=== PATIENT | female | born 1935 | race Caucasian/White ===

== ENCOUNTER 2016-12-24 14:40 | Inpatient (IN) | payer OTHER, BC ==
[~2016-12-24] VITALS: Ht 157.5 cm; Wt 48.9 kg
--- NOTE | ~2016-12-24 | EKG ---
[address] [place] [address] ELECTROCARDIOGRAM REPORT Name: SALVATORE MORE Room #: 461-P ADM IN M.R.#: [id number] Admission: 12/24/16 Attend Phys: Cuco Gomez DO Discharge: Date of : 37 Report #: [id number] THIS REPORT FOR: //name// [facility] Test Date: 2016-12-26 Test Time: 23:19:48 Pat Name: SALVATORE MORE Department: Room: 461 P Gender: F Risk Assessment Consultant: karlos sun : 1935 Requested By: Sonali Vasquez Order Number: [id number] MD: Measurements Intervals [place] Rate: 155 P: 52 SD: 147 QRS: 51 QRSD: 72 T: -63 QT: 294 QTc: 473 Interpretive Statements Supraventricular tachycardia Borderline low voltage, extremity leads Repolarization abnormality, prob rate related No previous ECG available for comparison [email or web address] By: 2319 2319 Epiphany EpiphanyMD /EPI
--- NOTE | ~2016-12-24 | H ---
[facility] [address] HISTORY AND PHYSICAL Name: SALVATORE MORE Room #: 461-P ADM IN M.R.#: [id number] Admission: 12/24/16 Attend Phys: Sregey Granado MD Discharge: Date of : 36 Report #: [id number] THIS REPORT FOR: //name// CC: [facility] REASON FOR ADMISSION: Pulmonary embolism. 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 The details of the history are that the patient had a fall and broke her right femur at [facility]. In preparing her to the surgery, the her and she was found to have cold agglutinin disease. [facility] had her [facility] without any issues. The daughter is not aware of whether she was transfused or not. She was discharged on baby aspirin after Lovenox postop. Few days ago, she started to have swelling of the lower extremities with shortness of breath. She presented to [facility] for further evaluation and management and was found to have pulmonary embolism on the report of the CT. The other facility did not feel comfortable managing her pulmonary embolism as she was found to have a hemoglobin of 7 with a positive occult; however, she does have hemorrhoids. They felt that she will need transfusion, anticoagulation, gastrointestinal workup along with pulmonary workup with hematology evaluation and thus she was transferred. The patient currently feels okay other than minimal pain in the right lower extremity. PAST MEDICAL HISTORY: Really nothing other than this cold agglutinin disease. PAST SURGICAL HISTORY: 1. Cataract. 2. Right heel plate. 3. Right hip . 4. Right femur fracture with a plate placement. 5. Left wrist pin placement. SOCIAL HISTORY: She is a housewife. She quit smoking in 1999. No drug or alcohol abuse. FAMILY HISTORY: No known chronic medical illnesses including this cold agglutinin disease. MEDICATIONS: Listed medications from the other facility included gabapentin, Lovenox, tramadol. REVIEW OF SYSTEMS: GENERAL: No fever or chills. CARDIOVASCULAR: Occasional shortness of breath and lower extremity swelling. PULMONARY: Occasional shortness of breath. No cough or hemoptysis. [address] [address] HISTORY AND PHYSICAL Name: SALVATORE MORE Room #: 461-P [facility] IN M.R.#: [id number] Admission: 12/24/16 Attend Phys: Sergey Granado MD Discharge: Date of : 36 Report #: [id number] GASTROINTESTINAL: She has hemorrhoids with bleeding every once in a while from those hemorrhoids. GENITOURINARY: No frequency, no urgency. MUSCULOSKELETAL: Right hip pain. PHYSICAL EXAMINATION: GENERAL: She is alert, oriented, in no apparent distress. VITAL SIGNS: Temperature 37.1, pulse rate 97, blood pressure 136/83. HEAD AND NECK: No jugular venous distention. Some missing dentures. CHEST: Clear to auscultation bilaterally. CARDIOVASCULAR: Regular with no rub detected. ABDOMEN: Soft, nontender with no hepatosplenomegaly. LOWER EXTREMITIES: Extensive swelling in the right lower extremity with sutures in place and bruises around the right thigh. She also has an abrasion on the right tibial dave. LABORATORY VALUES: From the other facility reviewed. Her most recent hemoglobin is 7.1, dropping from 9.1 yesterday. She also has low potassium. Her potassium was 3.3. ASSESSMENT, IMPRESSION AND PLAN: 1. Pulmonary embolism, provoked status post surgical intervention. 2. Cold agglutinin disease. 3. Recent right hip surgery. 4. Admission. 5. Cold agglutinin disease. She is completely asymptomatic from it other than a low hemoglobin. The issue that is arising right now is anticoagulation with her hemoglobin dropping down. I will obtain hematology consultations. 6. Hold on anticoagulation until further evaluation of the bleeding events. 7. Pain control. 8. Pulmonary consultations. 9. Gastrointestinal and hematology consultations. 10. Hemolysis workup including bilirubin, LDH, haptoglobin. 11. We will discuss with the other team members. <ELECTRONICALLY SIGNED> By: Yan Nichols MD 12/25/16 1223 [id number] 50 Yan Nichols MD /nt
--- NOTE | ~2016-12-24 | HC ---
[facility] [place] [address] CONSULTATION Name: SALVATORE MORE Room #: 461-P [facility] IN M.R.#: [id number] Admission: 12/24/16 Attend Phys: Cuco Gomez DO Discharge: 12/27/16 Date of : 36 Report #: [id number] THIS REPORT FOR: //name// CC: [facility]uco [facility] DATE OF SERVICE: 12/27/2016 HISTORY OF PRESENT ILLNESS: The patient is an 81-year-old white female who had a fall and broke her right femur. She was admitted to [facility]. Apparently during her workup, she was noted to have cold agglutinin disease. She ended up undergoing plate and screws with ORIF on 12/17/2016 at [facility] by Dr. Grabiel Nazario. The daughter notes that she was doing reasonably well post-surgery, was ambulating, allowed 50% weightbearing and discharged for a trial home with home healthcare. After being discharged home, she initially was doing well, but then she had worsening lower extremity swelling. She then developed shortness of breath. She also was noted to have Hemoccult positive stools and was admitted at this time to [facility]. Hemoglobin was 7. Workup was positive for pulmonary embolism. She did have the occult blood, but she does have a history of hemorrhoids. She has been seen by Gastroenterology. She has since been fully anticoagulated with no further bleeding and the plan is to hold on colonoscopy at this time. Hematology has been involved as well with her cold agglutinin disease. The patient is now being seen in rehabilitation medicine consultation. PAST MEDICAL HISTORY: Includes the cold agglutinin disease. PAST SURGICAL HISTORY: Includes a prior right trochanteric fracture approximately 14 months ago for which she had a separate pin in place. She has had left wrist pin placement. MEDICATIONS: Please see the full medication listing. ALLERGIES: No known drug allergies. FAMILY HISTORY: No family history of colon cancer or ulcer disease. SOCIAL HISTORY: Lives alone, house, 1 step in with 12 inside, ranch style. She had utilized a cane prior to the hip fracture. The daughter assists regularly with housekeeping and laundry. Family members work and the patient would not be able to have continued assistance. She will need to be able to care for herself in order to return back to the home setting. REVIEW OF SYSTEMS: Did not offer any current complaints of chest pain, shortness of breath or abdominal discomfort. She is hard of hearing. She has dental issues with poor dentition. No focal extremity pain complaints other [address] [address] CONSULTATION Name: SALVATORE MORE Room #: 461-P [facility] IN M.R.#: [id number] Admission: 12/24/16 Attend Phys: Cuco Gomez, DO Discharge: 12/27/16 Date of : 36 Report #: [id number] than some mild residual right hip discomfort. She notes the swelling in her legs has much improved. PHYSICAL EXAMINATION: Pleasant 81-year-old white female. She is of slender build, no obvious distress. Last recorded temperature is 98.2, pulse 64, respirations 16, blood pressure 97/72. She is alert, pleasant, follows basic commands without difficulty, is appropriate. Tends to defer some the answers to her daughter. Facies are symmetric. Functional range of motion of the upper extremities, strength is a grade 4- to 4/5. DTRs are trace to 1. In her lower extremities, her right hip incision reveals sutures in place. There is no erythema of the incision site, no drainage. No obvious focal calf swelling. She only has trace to 1+ distal edema. Strength of the lower extremities is probably grade 4-/5. DTRs are trace to 1. There was no clonus. Temperature of the lower extremities appears normal. Functionally, she has been mod assist with toilet transfers. Lower extremity dressing is max assist. She did need some cues for partial weightbearing right lower extremity. ASSESSMENT: An 81-year-old white female with the following problem list: 1. Right femur fracture status post open reduction internal fixation with plate and screws at [facility] 12/17/2016. 2. Pulmonary embolism. 3. Cold agglutinin disease. 4. Initial severe anemia with Hemoccult positive stool. Gastroenterology is monitoring. 5. Prior right trochanteric fracture with separate pinning approximately 14 months ago. PLAN: The patient is a candidate for an acute in-hospital inpatient rehabilitation stay. From a preadmission screening perspective: 1. Prior level of function is well delineated above. 2. Expect level of improvement would be for the patient to become modified independent with transfers, mobility and ADLs, so that she can return back to the home setting. Would anticipate length of stay of at least 10 days to 2 weeks and likely longer if needed. 3. Evaluation of the patient's risk for clinical complications. She does have multiple medical comorbidities as noted above. 4. Condition that caused the need for rehabilitation would be the right hip fracture. 5. Treatments needed would include PT and OT 1-1/2 hours per day each 5 days a week throughout the duration of the acute inpatient rehabilitation stay. 6. Anticipated discharge destination would be back to the home setting. 7. Would anticipate home healthcare therapies once ready for discharge. 8. The patient meets diagnostic criteria for an acute in-hospital inpatient rehabilitation stay. She meets medical necessity criteria. This is not a straightforward hip fracture that could go to a longterm facility, but she needs acute inpatient rehabilitation with the multiple medical comorbidities [facility] [address] [place] [address] CONSULTATION Name: SALVATORE MORE Room #: 461-P DIS IN M.R.#: [id number] Admission: 12/24/16 Attend Phys: Cuco Gomez DO Discharge: 12/27/16 Date of : 36 Report #: [id number] including continued involvement with Hematology, Gastroenterology as well as Internal Medicine with complications that have occurred during the postoperative period. She will be best managed in an acute in-hospital inpatient rehab lei where the library sales consultant physicians can continue to follow and monitor her while she is undergoing her rehabilitation therapies. The patient does have the tolerance for an acute in-hospital inpatient rehabilitation stay and has appropriate discharge goals back to the home setting. ADDENDUM: Discussion with the patient's daughter who appears up on the particulars of the patient's care. I reviewed all the records and there was no delineation of the patient's weightbearing status in the records. Daughter, however, notes that the patient is allowed 50% weightbearing and that this was indicated on the discharge information when the patient left, post-surgery. I discussed this with the daughter that I will put the order in for 50% weightbearing through physical therapy and the daughter will be bringing in a copy of the discharge information from [facility] at a later time. I confirmed this information with the daughter who had et al specifically referenced both by memory and on her phone. We will plan on admitting for acute inpatient rehabilitation when medically cleared. <ELECTRONICALLY SIGNED> By: Earle Corrales MD 12/28/16 1534 [id number] [id number] Earle Corrales MD /nt
--- NOTE | ~2016-12-24 | HC ---
[facility] [place] [address] CONSULTATION Name: SALVATORE MORE Room #: 461-P ADM IN M.R.#: [id number] Admission: 12/24/16 Attend Phys: Sergey Granado MD Discharge: Date of : 36 Report #: [id number] THIS REPORT FOR: //name// CC: Sergey Roberts MD REASON FOR CONSULTATION: The patient is an 81-year-old woman with drop in hemoglobin and rectal bleeding. HISTORY OF PRESENT ILLNESS: This 81-year-old woman has a history of cold agglutinin disease that was found previously at another institution. She had a fall and broke her right femur. She was initially seen at [facility] and later transferred to [facility] for surgery because of her cold agglutinin disease. She was cared for by home health services and subsequently several days ago developed swelling of both lower extremities. She returned to [facility] and she was found to have evidence of pulmonary emboli. She was started on anticoagulation. It is noted she has cold agglutinin disease and she was anemic with hemoglobin, I believe in the 8 range. It dropped to 7. She did have rectal bleeding. The patient reports she has had hemorrhoids, however, she very infrequently will see bright red blood per rectum. It is noted the patient has never had a colonoscopy. Occasionally she will have to strain but constipation has not been a problem. Due to the rectal bleeding, drop in hemoglobin, cold agglutinin disease as well as her pulmonary embolus, she was transferred to [facility]. I have spoken with Dr. Nichols and reports that she has maintained on anticoagulation and she has not had any further rectal bleeding. Her hemoglobin at this institution is 8.7 with an MCV of 112. PAST MEDICAL HISTORY: The patient tells me she has not had any other major medical problems. Degenerative joint disease. PAST SURGICAL HISTORY: She has had cataract surgery, right heel surgery. She had recent right femur fracture with plate placement. I believe she has had hip surgery as well. She had a wrist fracture and left pin placement. ALLERGIES: No known drug allergies. USUAL HOME MEDICATIONS: Initially the patient told me she takes no medicines, but later explained that she takes 2 Excedrin twice daily due to arthritis. She has never had any GI complaints from her Excedrin. FAMILY HISTORY: No family history of colon cancer or ulcer disease. SOCIAL HISTORY: in 2002. She quit smoking in 1999. She drinks [address] [place] [address] CONSULTATION Name: SALVATORE MORE Room #: 461-P [facility] IN M.R.#: [id number] Admission: 12/24/16 Attend Phys: Sergey Granado MD Discharge: Date of : 36 Report #: [id number]. REVIEW OF SYSTEMS: GENERAL: She has lost 20 pounds since her passed in 2002. She said she just does not cook any more. She has not had any fever or chills. HEENT: No change in vision or sores in mouth. She is hard of hearing. PULMONARY: She is previously long-term smoker. She denies pneumonia, tuberculosis or breathing difficulties. CARDIOVASCULAR: No chest pain, chest tightness or palpitations. GASTROINTESTINAL: No abdominal pain, nausea or vomiting in spite of use of aspirin. She has rarely rectal bleeding, maybe once yearly. GENITOURINARY: Without dysuria, pyuria, kidney stones, contracture or infection. MUSCULOSKELETAL: Degenerative joint disease, mostly in the hands for which she takes aspirin. GYNECOLOGIC: No discharges or bleeding, no breast problems. MUSCULOSKELETAL: Degenerative joint disease in her hands. SKIN: No rashes, but fragile skin with recent skin tears. PSYCHIATRIC: No depression, anxiety or bipolar illness. ENDOCRINE: She is not aware of diabetes or thyroid problems. HEMATOLOGIC: No bleeding, bruising or malignancies. She does have cold agglutinin disease. PHYSICAL EXAMINATION: GENERAL: The patient is a well-developed, well-nourished thin woman in no acute distress. She is definitely hard of hearing. VITAL SIGNS: Blood pressure 132/77, pulse of 87. HEENT: Anicteric. Pupils are equal and round. Oropharynx is clear. NECK: Supple. CHEST: Clear. HEART: Regular rate and rhythm, normal S1, normal S2. ABDOMEN: Normal bowel sounds, soft, nontender without hepatosplenomegaly or masses. RECTAL: Digital rectal exam completed. She clearly has hemorrhoidal tags. However, I do not see any engorged or swollen hemorrhoids or stigmata of recent bleeding. Anal canal was unremarkable. Distal vault is negative. EXTREMITIES: Sutures from recent leg and hip surgery. Bandages on skin tears on the lower extremities. She has marked degenerative changes, in particular joints of her hands. NEUROLOGIC: Oriented to person, place and time. Moves all 4 extremities well. She ambulates with a walker. LABORATORY DATA: CBC as noted above. INR of 1.0, BUN of 9, creatinine 0.5. ASSESSMENT: 1. Rectal bleeding. [facility] [address] [place] [address] CONSULTATION Name: SALAVTORE MORE Room #: 461-P [facility] IN M.Alyssa.#: [id number] Admission: 12/24/16 Attend Phys: Sergey Granado MD Discharge: Date of : 36 Report #: [id number] 2. Drop in hemoglobin, stable at this time. 3. Recent femur fracture status post surgery on December 15. 4. Pulmonary embolism, new diagnosis. 5. Cold agglutinin disease. 6. Likely chronic obstructive pulmonary disease secondary to cigarette smoking. 7. Daily use of Excedrin. COMMENT: Discussed with the patient and daughter, later on discussed with Dr. Nichols. She has never had a colonoscopy. She has had rectal bleeding. She does have a drop in hemoglobin, although it is up to date. Certainly could be hemorrhoidal disease. However, I cannot say that she does not have a colon lesion since she has never had a colonoscopy. Discussed with Dr. Nichols. She is currently fully anticoagulated and not bleeding at this point in time. With the recent surgery, prepping and colonoscopy would be challenging. Therefore, at this time we will observe for bleeding. If she does have evidence of lower GI bleeding, we will proceed with colonoscopy at that time. Later on consider colonoscopy as an outpatient, either when anticoagulants could be held for period of time or if not too long, when she comes off of the anticoagulation. By: [id number] Elmo Pate MD /nt
[2016-12-24 14:44] VITALS: BP 136/83
[2016-12-24 16:41] LABS: CALCIUM 8.3 mg/dL (8.5-10.1); CREATININE 0.5 mg/dL (0.6-1.0); POTASSIUM 3.6 mmol/L (3.5-5.1)
[2016-12-24 16:45] LABS: ALBUMIN 3.1 g/dL (3.4-5.0); TOTAL BILIRUBIN 0.3 mg/dL (<0.1-1.0); TOTAL PROTEIN 6.7 g/dL (6.4-8.2)
[2016-12-24 16:52] LABS: PROTIME 10.3 Seconds (9.3-11.4)
[2016-12-24 18:45] LABS: HEMATOCRIT 21.5 % (37.0-47.0); HEMOGLOBIN 8.7 gm/dL (12.0-15.0); MCH 44.9 pg (26.0-34.0); MCHC 40.4 g/dL (28.0-37.0); MCV 111.2 fL (80.0-100.0); RBC 1.93 mil/uL (4.20-5.00); RDW 13.8 % (10.5-14.5); WBC 7.8 thou/uL (4.0-11.0)
[2016-12-24 20:00] VITALS: BP 140/81
[2016-12-24 20:08] VITALS: BP 140/81
[2016-12-25 04:18] VITALS: BP 124/75
[2016-12-25 07:50] VITALS: BP 132/77
[2016-12-25 11:27] VITALS: BP 130/78
[2016-12-25 15:32] VITALS: BP 128/70
[2016-12-25 20:04] VITALS: BP 129/76
[2016-12-25 21:36] VITALS: BP 151/74
[2016-12-26] VITALS (7 sets, daily range): BP systolic 81–140; BP diastolic 51–93
[2016-12-26 06:38] LABS: ALBUMIN 2.7 g/dL (3.4-5.0); CALCIUM 8.3 mg/dL (8.5-10.1); CREATININE 0.6 mg/dL (0.6-1.0); POTASSIUM 3.7 mmol/L (3.5-5.1); TOTAL BILIRUBIN 0.4 mg/dL (<0.1-1.0); TOTAL PROTEIN 6.1 g/dL (6.4-8.2)
[2016-12-26 09:13] LABS: % SATURATION 8 % (20-39); IRON 17 ug/dL (50-170); TIBC 204 ug/dL (250-450); UIBC 187 ug/dL
[2016-12-26 10:13] LABS: ABSOLUTE RETIC COUNT 0.0777 10^6/uL; OBSERVED RETIC COUNT 3.22 % (0.6-2.6)
[2016-12-26 10:14] LABS: HEMATOCRIT 26.1 % (37.0-47.0); HEMOGLOBIN 9.5 gm/dL (12.0-15.0); MCH 39.5 pg (26.0-34.0); MCHC 36.6 g/dL (28.0-37.0); MCV 107.9 fL (80.0-100.0); RBC 2.42 mil/uL (4.20-5.00); RDW 14.5 % (10.5-14.5); WBC 5.9 thou/uL (4.0-11.0)
[2016-12-26 10:44] LABS: URINE BILIRUBIN NEGATIVE (Negative); URINE BLOOD 2+ (Negative); URINE COLOR YELLOW; URINE GLUCOSE-RANDOM* NEGATIVE (Negative); URINE KETONES NEGATIVE (Negative); URINE LEUKOCYTES-REFLEX 2+ (Negative); URINE PROTEIN (DIPSTICK) 1+ (Negative); URINE UROBILINOGEN 0.2 E.U./dl (0.2-1.0)
[2016-12-26 10:59] LABS: CASTS None Seen /LPF (None Seen); CRYSTALS None Seen /LPF (None Seen); SQUAMOUS 0-3 Few /LPF (0-3); URINE WBC-REFLEX >25 Many /HPF (0-5)
[2016-12-26 11:00] LABS: URINE RBC 0-2 Rare /HPF (0-2)
[2016-12-26 13:22] LABS: FOLIC ACID 19.7 ng/mL (8.6-58.9); TSH 1.673 uIU/mL (0.358-3.740)
[2016-12-27 04:50] VITALS: BP 82/49
[2016-12-27 06:22] LABS: ALBUMIN 2.4 g/dL (3.4-5.0); CALCIUM 7.8 mg/dL (8.5-10.1); CREATININE 0.8 mg/dL (0.6-1.0); POTASSIUM 3.4 mmol/L (3.5-5.1); TOTAL BILIRUBIN 0.3 mg/dL (<0.1-1.0); TOTAL PROTEIN 5.7 g/dL (6.4-8.2)
[2016-12-27 08:00] VITALS: BP 97/72
[2016-12-27 08:17] VITALS: BP 97/72
[2016-12-27] MEDS ORDERED: ACETAMINOPHEN325 M1 PO (09:53)
[2016-12-27] MEDS ORDERED: GABAPENTIN 100100 MG PO (09:53)
[2016-12-27] MEDS ORDERED: ENOXAPARIN40 MG/0.1 SUBQ (09:53)
[2016-12-27] MEDS ORDERED: FERREX 150 PLU1 EAC1 PO (09:53)
[2016-12-27 11:05] LABS: HEMATOCRIT 21.3 % (37.0-47.0); MCH 33.3 pg (26.0-34.0); MCHC 33.1 g/dL (28.0-37.0); RBC 2.12 mil/uL (4.20-5.00); RDW 14.3 % (10.5-14.5); WBC 18.1 thou/uL (4.0-11.0)
[2016-12-27 11:08] LABS: MANUAL DIFF YES
[2016-12-27 11:13] LABS: HEMOGLOBIN 7.1 gm/dL (12.0-15.0); MCV 100.4 fL (80.0-100.0); PLATELET COUNT 360 thou/uL (150-400)
[2016-12-27] MEDS ORDERED: CIPRO500 MG PO (12:32)
[2016-12-27 12:36] LABS: ABSOLUTE NEUTROPHILS 16.3 thou/uL (1.4-8.2); TOTAL CELL COUNT 100
[2016-12-27 12:37] LABS: ANISOCYTOSIS SLIGHT
== END 2016-12-27 16:00 | DRG 176 ==
LOC: 4W 14:40
PROVIDERS: Hospitalist; Internal Medicine Hematology & Oncology; Nurse Practitioner Family
DX: I26.99 Other pulmonary embolism without acute cor pulmonale (principal); D59.1 Other autoimmune hemolytic anemias; N39.0 Urinary tract infection, site not specified; K62.5 Hemorrhage of anus and rectum; M19.90 Unspecified osteoarthritis, unspecified site; D64.9 Anemia, unspecified; Z60.2 Problems related to living alone; Z87.891 Personal history of nicotine dependence; Z98.49 Cataract extraction status, unspecified eye
CPT/HCPCS: 10045

== ENCOUNTER 2016-12-27 12:42 | Inpatient (IN) | payer OTHER, BC ==
[~2016-12-27] VITALS: Ht 154.9 cm; Wt 42.4 kg
--- NOTE | ~2016-12-27 | HC ---
[facility] [place] [address] CONSULTATION Name: SALVATORE MORE Room #: 503-P ADM IN M.R.#: [id number] Admission: 12/27/16 Attend Phys: Earle Corrales MD Discharge: Date of : 36 Report #: [id number] THIS REPORT FOR: //name// CC: Earle Corrales MD [facility] physician/PCP Juan R Winters MD REASON FOR CONSULTATION: Anemia and cold agglutinins. HISTORY OF PRESENT ILLNESS: The patient is a pleasant 81-year-old female who back in, I think several months ago, was notable to have a cold agglutinin. This was evaluated by Dr. Juan R Chinchilla at [facility]. There her titer was 1:128, which is not that clinically high. Usually, we do not have hemolysis for the titer less than 512. Her serum protein electrophoresis was normal, suggestive that this was not related to a protein, though there was concern CAT scans could be done. I believe she may have had some scans and is not aware of any history of lymphoma or multiple myeloma. She did not require any specific therapy. She has also not required a transfusion. The main thing behind this is that if she does require transfusion, then would wish to use a blood warmer with the transfusion. The patient was recently in the hospital. She had had a femur fracture and had an open reduction and internal fixation and had felt short of breath, came to the hospital and was found to have pulmonary emboli fairly small. Hemoglobin was 7. Here, she has not been transfused. Her bilirubin and LDH have had been normal, suggesting that she is not hemolyzing. She has been on Lovenox 40 mg subq b.i.d. Yesterday, she was moved up here from the acute floor to the rehab setting. She did have a spell this morning when her oxygen was lower, but it also may be from an anxiety attack and vasoconstriction. I believe that the family thinks she also may have a history of what sounds like Raynaud's type difficulties. At this time, the patient denies fevers, chills, nausea or vomiting. A recent urine cultures did come back suggesting she has a UTI. Her blood gas this morning on 2 liters showed oxygen at 74. Her recent O2 sat on 2 liters is about 95 to 99. She denies any nausea. Her bowels moved several days ago. She does have some discomfort in her back early in the morning. No new skin rash. She is not aware of any bleeding or blood in the urine or stool. 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 She also had left wrist pin in the past. She also has a history of degenerative joint disease. A recent finding of 1-2 subsegmental pulmonary emboli. History of iron deficiency, deferring colonoscopy and EGD to a future date. [address] [address] CONSULTATION Name: SALVATORE MORE Room #: 503-P ADM IN M.R.#: [id number] Admission: 12/27/16 Attend Phys: Earle Corrales MD Discharge: Date of : 36 Report #: [id number] ALLERGIES: None known. FAMILY HISTORY: No history of colon or ulcer disease. SOCIAL HISTORY: in 2002. Quit smoking in 1999. Reporting may have been drinking 3-4 beers daily before admission. She is a very pleasant . PHYSICAL EXAMINATION: GENERAL: The patient appears her stated age. VITAL SIGNS: Current height is 5 feet 1, which is 154.9 cm. Weight is 103 pounds, which is 46.9 kilograms. Blood pressure is 99/47 and respirations 16. Temperature this morning at 04:15 was 101.1 orally, currently 99.7. O2 sat, like I said on 2 liters, is 95% to 99%. NEUROLOGIC: The patient is alert. She is hard of hearing, is slightly fuzzy, but very good for an 81-year-old. She is moving all extremities. MOOD: She is very pleasant and conversant. LUNGS: Has good symmetric airway expansion. No definite rhonchi. HEART: Regular rate. No enlarged lymph nodes in the supraclavicular, cervical, axillary or inguinal region. ABDOMEN: No masses. Nontender. EXTREMITIES: Without clubbing or cyanosis. There may be trace edema. MEDICATIONS: At this time include iron polysaccharide 150 mg, ciprofloxacin 500 b.i.d., lorazepam 0.25 b.i.d. p.r.n., gabapentin 100 mg at bedtime, Lovenox 40 mg b.i.d., Tylenol p.r.n., magnesium hydroxide 10 mL daily, bisacodyl p.r.n., sennosides daily and docusate p.r.n. LABORATORY DATA: Recent lab shows a BUN of 17, creatinine of 1.2. Liver functions had been normal. Albumin low at 2.4. Iron levels on December 26 had shown iron of 17, which is low; percent saturation at 8, which is low and TIBC at 204, which is low. Coags including protime had been normal. As I mentioned, SPEP at outside facility about 2 months ago had been without monoclonal protein. White count currently 3.9. Hemoglobin on admission had been 8.7; on it had been 9.5, yesterday 7.1 and today 8.3, suggesting the 7.1 and maybe the 9.5 may not have been completely accurate. MCV has been bouncing around between 111 and 100, consistent with agglutination and difficulty of machine measuring this accurately. RDW of 14.1 and platelets 441,000. Differential has slight left shift. Absolute retic count earlier had been 77. Immature reticulocyte fraction 0.58. Flow cytometry pending. Haptoglobin had been elevated at 260. TSH normal at 1.6, ferritin elevated at 560 and folate 19.7. B12 at 861. U/A had been nitrite positive and bacteria. Note that micro on the urine was greater than 100,000 gram-negative rods, reported on the at 06:54. ASSESSMENT AND PLAN: 1. 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 Again, would consider blood warming if transfused. Awaiting flow cytometry and peripheral blood, but does not appear to be a monoclonal or lymphoproliferative-related disorder. 2. Anemia, stable. No signs of bleeding. 3. Small pulmonary emboli. Continue with Lovenox 40 q.12h. Defer to others if they wish to change to either novel oral anticoagulant or Coumadin. 4. Iron-deficiency anemia and iron deficient, now on oral iron. We will defer to future endoscopies from GI. 5. Femur fracture, healing. 6. Urinary tract infection. Continue antibiotics per others. We will follow. <ELECTRONICALLY SIGNED> By: Bg Sarabia MD 12/29/16 0749 0911 1146 Bg Sarabia MD /nt
--- NOTE | ~2016-12-27 | H ---
[facility] [place] [address] HISTORY AND PHYSICAL Name: SALVATORE MORE Room #: 503-P ADM IN M.R.#: [id number] Admission: 12/27/16 Attend Phys: Earle Corrales MD Discharge: Date of : 36 Report #: [id number] THIS REPORT FOR: //name// CC: Earle Corrales [facility] physician/PCP DATE OF SERVICE: 12/27/2016 HISTORY OF PRESENT ILLNESS: The patient is an 81-year-old white female who originally fell and broke her right femur. She was admitted to [facility]. Apparently during her workup, she was noted to have cold agglutinin disease. She ended up undergoing plate and screws with ORIF on 12/17/2016 at [facility] by Dr. Grabiel Nazario. The daughter notes that she was doing reasonably well post-surgery, was ambulating about 50% weightbearing and discharged for trial home with home health care. After being discharged home, she initially was doing well, but then she had worsening lower extremity swelling. She developed shortness of breath. She also was noted on heme occult positive stools, was admitted to [facility]. Hemoglobin was 7. Workup was positive for pulmonary embolism. She did have the occult blood, but she does have a history of hemorrhoids. She was seen by Gastroenterology. She has since been fully anticoagulated with no further bleeding and the plan is to hold on the colonoscopy at this time. Hematology has been involved as well with a cold agglutinin disease. The patient was admitted for acute in-hospital inpatient rehabilitation. Last night, she did spike a fever up to 101.1. Urine cultures noted to be positive, being collected on December 26 with greater than 100,000 gram-negative rods. The hospitalist service is involved. She has been started on p.o. Ciprofloxacin without any further fever since been. Sensitivities are pending. PAST MEDICAL HISTORY: Includes the cold agglutinin disease. PAST SURGICAL HISTORY: Includes prior right trochanteric fracture approximately 14 months ago for which she has a separate pin in place. She has had a left wrist pin placement. MEDICATIONS: Please see the full medication listing. Each medication was individually reconciled. The medication list includes her medications, supplements over the counter etc. ALLERGIES: No known drug allergies. FAMILY HISTORY: No family history of colon cancer or ulcer disease. SOCIAL HISTORY: Lives alone, house, one step in with 12 inside ranch style. She had utilized a cane prior to the hip fracture. There is a daughter that assists regularly with housekeeping and laundry. [place] [address] HISTORY AND PHYSICAL Name: SALVATORE MORE Room #: 503-P [facility] IN M.R.#: [id number] Admission: 12/27/16 Attend Phys: Earle Corrales MD Discharge: Date of : 36 Report #: [id number] patient would not be able to have continued assistance. She will need to be able to care for herself in order to return back to the home setting. REVIEW OF SYSTEMS: No current complaints of chest pain, shortness of breath or abdominal discomfort. She is hard of hearing. She does have dental issues with poor dentition. This morning, she has some diffuse complaints of malaise. Apparently has some urinary frequency upon discussion. No focal extremity pain complaints. She notes the swelling in her lower extremities has improved. No complaints of headache or neurologic changes were noted. PHYSICAL EXAMINATION: GENERAL: An 81-year-old slender white female in no obvious distress. She again had a T-max of 101.1 and is now 98.4, pulse 100, respirations 16, blood pressure 116/72. She is hard of hearing, alert, defers some of the answers to her daughter. Will follow basic 1 step commands. HEENT: Facies are symmetric. CHEST: Sound overall clear. CARDIOVASCULAR: Regular rate and rhythm. ABDOMEN: Bowel sounds positive and nontender. GENITOURINARY: Deferred. RECTAL: Deferred. EXTREMITIES: Functional range of motion to both upper extremities with strength grade 4- to 4/5. DTRs are trace to 1. In her lower extremities, right hip incision reveals the sutures in place with no erythema of the incision site and no drainage. No obvious focal calf swelling. Trace to 1+ distal edema. Strength of the lower extremities is 4-/5. DTRs are trace to 1. There was no clonus. Temperature of the lower extremities appeared normal. Functionally, she has been contact guard actually with sit to stand, prior to coming to the rehab lei. Her evaluations are still underway. ASSESSMENT: 1. Right femur fracture status post open reduction and internal fixation with plate and screws at [facility] 12/17/2016. 2. Pulmonary embolism. 3. Cold agglutinin disease. 4. Initial severe anemia with hemoccult positive stool. Gastroenterology is monitoring. Last hemoglobin was stable at 8.3. 5. Febrile episode appears to be due to a urinary tract infection. She is now on ciprofloxacin. 6. Prior right trochanteric fracture was separate pending approximately 14 months ago. PLAN: The patient is admitted for acute in-hospital inpatient rehabilitation. From a postadmission physician evaluation perspective, there are no relevant changes since the preadmission screening. Please see the above review of prior and current medical and functional conditions and comorbidities. Please see the [address] [place] [address] HISTORY AND PHYSICAL Name: SALVATORE MORE Room #: 503-P ADM IN M.R.#: [id number] Admission: 12/27/16 Attend Phys: Earle Corrales MD Discharge: Date of : 36 Report #: [id number] patient's previous and current functional status. As far as risk of complications, see the above noted comorbidities. Initial plan of care involves the interdisciplinary acute inpatient rehabilitation program with the goal of maximizing the patient's functional independence so she can hopefully return back to her prior living situation. Prognosis is reasonably good with estimated length of stay probably at least 10 days to 2 weeks pending progress. Potential barriers would include her multiple medical comorbidities and decreased functional status. The patient meets diagnostic criteria for an acute in-hospital inpatient rehabilitation stay. She meets medical necessity criteria. She has the multiple network systems consultant physicians that are following with the above noted problem list. She does have the tolerance for therapies and has appropriate discharge goals back to the home setting. ADDENDUM: With her febrile episode last night, I have ordered therapies as tolerated today. She is noted to be on IV fluids and the hospitalist service is following. <ELECTRONICALLY SIGNED> By: Earle Corrales MD 12/28/16 1534 0938 1111 Earle Corrales MD /nt
--- NOTE | ~2016-12-27 | PLAN ---
[facility] [place] [address] REHAB UNIT PLAN OF CARE Name: SALVATORE MORE Room #: 503-P ADM IN M.R.#: [id number] Admission: 12/27/16 Attend Phys: Earle Corrales MD Discharge: Date of : 36 Report #: [id number] THIS REPORT FOR: //name// CC: Earle Corrales [facility] physician/PCP The patient is seen back today in followup. She is doing much better today. She is afebrile. Pulse 105, respirations 18, blood pressure 116/65. Right hip incision appears to be intact. She does have several sutures that are in place. There is no erythema. There is no focal calf swelling. She is transferring with standby assistance and gait is 88 feet contact guard with a front-wheeled walker. Lower extremity dressing is min assist. ASSESSMENT: 1. Right femur fracture status post open reduction and internal fixation with plate and screws at [facility] 12/17/2016. It will be 2 weeks postop tomorrow. I talked with the daughter about having the sutures removed on Monday. 2. Escherichia coli urinary tract infection with sensitivity to Cipro. Is on Cipro as per the hospitalist. 3. Hypokalemia, potassium 3.1. To be supplemented as per the hospitalist service. 4. Pulmonary embolism. 5. Cold agglutinin disease. 6. Initial severe anemia with hemoccult positive stool. Hemoglobin today is 8.0. PLAN: The overall plan of care is based on the preadmission screen, post-admission physician evaluation and information garnered from therapy assessments. 1. Estimated length of stay is probably 10 days or so, potentially 2 weeks if warranted. 2. Medical prognosis is reasonably good. 3. Anticipated interventions includes the interdisciplinary acute inpatient rehabilitation program with PT and OT, rehab nursing assisting regarding medication management, skin care prophylaxis, bowel and bladder issues and nursing education. Case management is involved as well as the marine engineering consultant physicians. 4. Anticipated functional outcomes would be for the patient to become modified independent with transfers, mobility and ADLs with the hopes of returning back to the home setting. 5. Discharge destination would be back to the home setting. She does have a daughter who is closely involved. 6. Expected therapy by discipline includes PT and OT 1-1/2 hours per day each [address] [address] REHAB UNIT PLAN OF CARE Name: SALVATORE MORE Room #: 503-P [facility] IN [facility].#: [id number] Admission: 12/27/16 Attend Phys: Earle Corrales MD Discharge: Date of : 36 Report #: [id number] five days a week throughout the duration of the acute inpatient rehabilitation stay. <ELECTRONICALLY SIGNED> By: Earle Corrales MD 01/03/17 1157 0900 1214 Ealre Corrales MD /nt
--- NOTE | ~2016-12-27 | HC ---
[facility] [place] [address] CONSULTATION Name: SALVATORE MORE Room #: 503-P ADM IN M.R.#: [id number] Admission: 12/27/16 Attend Phys: Earle Corrales MD Discharge: Date of : 36 Report #: [id number] THIS REPORT FOR: //name// CC: Earle Corrales [facility] physician/PCP DATE OF SERVICE: 12/31/2016 ATTENDING PHYSICIAN: Earle Corrales M.D. ELECTRICAL CAD TECHNICIAN: Fernando Brandt, Ph.D. CLINICAL PRESENTATION: The patient is an 81-year-old female admitted to the rehabilitation unit at [facility] for comprehensive inpatient rehabilitation program to improve functional mobility and activities of daily living and self-care along with mental status secondary to a fall. Reportedly, she fractured her femur and is status post open reduction and internal fixation with plate and screws that was done on 12/17/2016. Her assessment on admission to rehab includes pulmonary embolism, cold agglutinin disease, initial severe anemia with positive hemoccult, febrile episodes due to urinary tract infection, and prior right trochanter fracture. A complete description of her medical condition and history can be found in her medical records. Neuropsychological consultation was requested to provide assistance in the assessment of cognitive and emotional status and to provide recommendations and services. Prior to this most recent admission, she was living independently in her own home. She reports that she was driving, managing her meals and medications without assistance. She has a supportive family. The patient had 3 children. Two live within the [place] area. 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 TECHNIQUES UTILIZED: Clinical interview, review of medical records, staff consultation and behavioral observation, mini mental status exam to a standard version and clock drawing. EXAMINATION FINDINGS: The patient was alert and cooperative with the assessment. She accurately described the reason for her hospitalization. She does not report difficulty with cognitive function, word finding, memory, sleep or appetite. Her daughter was present during the interview and her daughter does not describe the patient as having difficulty with cognition. She also does not report problems with depression. However, the patient appears anxious. Her performance on the MMSE 2 brief version is within normal limits with a raw score 16 of 16. Performance on the MMSE 2 standard version is within normal limits with a raw score 27 of 30. The patient was 2/5 for serial sevens. She was 2 for 2 for naming, 3 for 3 for auditory comprehension. She could read and [facility] [address] [place] [address] CONSULTATION Name: SALVATORE MORE Room #: 503-P [facility] IN M.R.#: [id number] Admission: 12/27/16 Attend Phys: Earle Corrales MD Discharge: Date of : 36 Report #: [id number] follow single command and write a sentence. The patient was able to accurately copy a simple geometric design and draw a clock and set the hands at a designated time. DIAGNOSTIC IMPRESSION: Delirium -- resolved. 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 RECOMMENDATIONS: The patient will likely benefit from reassurance and support regard to her recovery. Her family will need increased involvement in helping her maintain independence in the community. She will need assistance in the medication and nutrition management at this time. She appears alert and oriented with cognitive functioning returning to more within normal limits. Thank you very much for allowing me to provide the consultation on this patient. <ELECTRONICALLY SIGNED> By: Fernando Brandt, PhD 01/04/17 1809 1648 [id number] Fernando Brandt, PhD /nt
[~2016-12-27 12:42] MED LIST: ACETAMINOPHEN325 M1 PO; CIPRO500 MG PO; ENOXAPARIN40 MG/0.1 SUBQ; FERREX 150 PLU1 EAC1 PO; GABAPENTIN 100100 MG PO
[2016-12-27 16:00] VITALS: BP 116/72
[2016-12-27 18:15] VITALS: BP 119/56
[2016-12-28 04:16] LABS: ABG SAMPLE TYPE ARTERIAL; BE(vivo) -10.5 mmol/L (-2 to +3); HCO3 13.5 mmol/L (22.0-26.0); LACTATE 8.11 mmol/L (0.5-2.0); O2(CT) 11.6 mL/dL (15.0-23.0); PCO2 24.2 mmHg (35.0-45.0); PO2 70.6 mmHg (80.0-100.0); pH 7.365 (7.360-7.450); sO2 94.1 % (92.0-98.0); tCO2 14.3 mmol/L (24.0-30.0)
[2016-12-28 04:17] LABS: STICK SITE R.BRACHIAL
[2016-12-28 04:33] LABS: HEMATOCRIT 24.1 % (37.0-47.0); HEMOGLOBIN 8.3 gm/dL (12.0-15.0); MCH 37.2 pg (26.0-34.0); MCHC 34.4 g/dL (28.0-37.0); RBC 2.23 mil/uL (4.20-5.00); RDW 14.1 % (10.5-14.5); WBC 3.9 thou/uL (4.0-11.0)
[2016-12-28 04:34] LABS: MCV 107.9 fL (80.0-100.0)
[2016-12-28 04:51] LABS: CALCIUM 8.7 mg/dL (8.5-10.1); CREATININE 1.2 mg/dL (0.6-1.0); MAGNESIUM 2.1 mg/dL (1.8-2.4); TROPONIN-I 0.06 ng/mL (<0.04-0.07)
[2016-12-28 06:00] VITALS: BP 99/47
[2016-12-28 16:05] VITALS: BP 90/58
[2016-12-29 05:23] VITALS: BP 99/67
[2016-12-29 08:00] VITALS: BP 98/56
[2016-12-29 16:05] VITALS: BP 103/71
[2016-12-30 04:54] VITALS: BP 116/65
[2016-12-30 05:13] LABS: CALCIUM 8.1 mg/dL (8.5-10.1); CREATININE 0.7 mg/dL (0.6-1.0); POTASSIUM 3.1 mmol/L (3.5-5.1)
[2016-12-30 06:22] LABS: HEMATOCRIT 23.6 % (37.0-47.0); MCH 34.3 pg (26.0-34.0); RBC 2.34 mil/uL (4.20-5.00); RDW 14.3 % (10.5-14.5); WBC 12.8 thou/uL (4.0-11.0)
[2016-12-30 07:22] LABS: PLATELET COUNT 352 thou/uL (150-400)
[2016-12-30 07:23] LABS: MANUAL DIFF YES
[2016-12-30 08:58] LABS: TOTAL CELL COUNT 100
[2016-12-30 08:59] LABS: ANISOCYTOSIS 1+; POLYCHROMASIA OCCASIONAL
[2016-12-30 16:00] VITALS: BP 104/59
[2016-12-31 04:40] VITALS: BP 112/72
[2016-12-31 04:52] LABS: CALCIUM 8.2 mg/dL (8.5-10.1); CREATININE 0.7 mg/dL (0.6-1.0); MAGNESIUM 2.1 mg/dL (1.8-2.4); POTASSIUM 3.9 mmol/L (3.5-5.1)
[2016-12-31 05:58] LABS: RDW 14.6 % (10.5-14.5)
[2016-12-31 06:01] LABS: HEMATOCRIT 23.5 % (37.0-47.0); HEMOGLOBIN 8.1 gm/dL (12.0-15.0); MCH 35.8 pg (26.0-34.0); MCHC 34.6 g/dL (28.0-37.0); MCV 103.5 fL (80.0-100.0); RBC 2.28 mil/uL (4.20-5.00); WBC 8.5 thou/uL (4.0-11.0)
[2016-12-31 16:18] VITALS: BP 102/65
[2017-01-01 06:20] VITALS: BP 118/78
[2017-01-01 16:29] VITALS: BP 112/64
[2017-01-02 04:31] VITALS: BP 121/71
[2017-01-02 16:00] VITALS: BP 122/74
[2017-01-03 05:21] VITALS: BP 115/70
[2017-01-03 17:37] VITALS: BP 128/59
[2017-01-04 13:30] LABS: ALBUMIN 3.1 g/dL (3.4-5.0); CALCIUM 8.9 mg/dL (8.5-10.1); CREATININE 0.7 mg/dL (0.6-1.0); POTASSIUM 4.2 mmol/L (3.5-5.1); TOTAL BILIRUBIN 0.3 mg/dL (<0.1-1.0); TOTAL PROTEIN 7.1 g/dL (6.4-8.2)
[2017-01-04 14:36] LABS: HEMATOCRIT 25.1 % (37.0-47.0); HEMOGLOBIN 8.7 gm/dL (12.0-15.0); MCH 36.4 pg (26.0-34.0); MCHC 34.8 g/dL (28.0-37.0); MCV 104.7 fL (80.0-100.0); RBC 2.39 mil/uL (4.20-5.00); RDW 14.7 % (10.5-14.5); WBC 7.8 thou/uL (4.0-11.0)
[2017-01-04 15:25] VITALS: BP 114/57
[2017-01-05 05:59] VITALS: BP 117/67
[2017-01-05 06:52] LABS: CREATININE 0.6 mg/dL (0.6-1.0); POTASSIUM 4.2 mmol/L (3.5-5.1)
[2017-01-05 10:05] LABS: HEMOGLOBIN 8.1 gm/dL (12.0-15.0); MCH 34.5 pg (26.0-34.0); MCHC 33.2 g/dL (28.0-37.0); PLATELET COUNT 459 thou/uL (150-400); RBC 2.34 mil/uL (4.20-5.00); RDW 15.6 % (10.5-14.5); WBC 5.5 thou/uL (4.0-11.0)
[2017-01-05 10:07] LABS: MANUAL DIFF YES
[2017-01-05 10:08] LABS: HEMATOCRIT 24.3 % (37.0-47.0)
[2017-01-05 10:27] LABS: ABSOLUTE NEUTROPHILS 3.9 thou/uL (1.4-8.2); NUCLEATED RBCS 1 /100WBC; PLATELET ESTIMATE INCREASED; TOTAL CELL COUNT 100
[2017-01-05 16:00] VITALS: BP 103/68
[2017-01-06 05:54] VITALS: BP 116/72
[2017-01-07 05:25] VITALS: BP 110/67
[2017-01-07 06:34] LABS: HEMATOCRIT 23.1 % (37.0-47.0); HEMOGLOBIN 7.8 gm/dL (12.0-15.0); MCH 34.5 pg (26.0-34.0); MCHC 33.6 g/dL (28.0-37.0); MCV 102.7 fL (80.0-100.0); RBC 2.25 mil/uL (4.20-5.00); RDW 14.8 % (10.5-14.5); WBC 6.1 thou/uL (4.0-11.0)
[2017-01-07 16:40] VITALS: BP 104/64
[2017-01-08 06:28] VITALS: BP 108/61
[2017-01-08 16:00] VITALS: BP 90/51
[2017-01-09 05:52] VITALS: BP 118/67
[2017-01-09 10:20] VITALS: BP 118/67
[2017-01-09] MEDS ORDERED: ELIQUIS5 MG PO (11:13)
[2017-01-09] MEDS ORDERED: PROTONIX40 M2 PO (11:25)
== END 2017-01-09 13:06 | disposition home health service (06) | DRG 533 ==
PROVIDERS: Internal Medicine Endocrinology, Diabetes & Metabolism; Nurse Practitioner; Nurse Practitioner Adult Health; Physical Medicine & Rehabilitation
DX: S72.91XA Unspecified fracture of right femur, initial encounter for closed fracture (principal); I26.99 Other pulmonary embolism without acute cor pulmonale; D59.1 Other autoimmune hemolytic anemias; N39.0 Urinary tract infection, site not specified; N17.9 Acute kidney failure, unspecified; E87.1 Hypo-osmolality and hyponatremia; K62.5 Hemorrhage of anus and rectum; M19.90 Unspecified osteoarthritis, unspecified site; D64.9 Anemia, unspecified; D50.9 Iron deficiency anemia, unspecified; B96.20 Unspecified Escherichia coli [E. coli] as the cause of diseases classified elsewhere; G31.84 Mild cognitive impairment of uncertain or unknown etiology; F43.20 Adjustment disorder, unspecified; Z60.2 Problems related to living alone; I95.9 Hypotension, unspecified; F41.9 Anxiety disorder, unspecified; E87.6 Hypokalemia; Z87.891 Personal history of nicotine dependence; Z79.899 Other long term (current) drug therapy; R53.81 Other malaise; W18.39XA Other fall on same level, initial encounter; Y93.89 Activity, other specified; Y92.89 Other specified places as the place of occurrence of the external cause; Y99.8 Other external cause status
CPT/HCPCS: 10112